=== PATIENT | female | born 1960 | race Caucasian/White ===

== ENCOUNTER → 2025-01-13 | Outpatient (CLI) | payer MEDICARE, SELFPAY ==
--- NOTE | 2025-01-13 10:22 | RAD_ITS ---
PROCEDURE: ORBITS FOR FOREIGN BODY 01/13/2025 REASON FOR EXAM: HX: REMOVAL OF METAL FROM EYES TECHNIQUE: 2 view(s) of the facial bones COMPARISON: None FINDINGS: Bones: Unremarkable Sinuses: Unremarkable Additional findings: No radiopaque foreign body seen. RAD/Orbits for Foreign Body IMPRESSION: No radiopaque foreign body seen. Clear for [place] Reading Location: [facility]
--- NOTE | 2025-01-13 10:45 | MRI_ITS ---
CLINICAL HISTORY: proptosis COMPARISON: none TECHNIQUE: Multiplanar sequence imaging of the orbits and brain with and without contrast was performed. FINDINGS: Bilateral symmetrical fusiform thickening of the extra-ocular muscles, most evident along the inferior and medial recti. Enlarged lacrimal glands with no obvious focal enhancing masses. Bilateral proptosis noted. Both optic nerves are of normal width and signal intensity. No mass is seen in their relation.No abnormal optic nerve enhancement seen. Optic chiasma is normal. Periorbital soft tissues and retrobulbar fat appear unremarkable. No mass or collection is evident. Both eyeballs are normal in size, outline and position. No intra-ocular mass is observed. No acute or hyperacute infarcts. No intracerebral or extra-axial hematomas. No obvious enhancing masses. Bilateral cerebral periventricular and subcortical as well as basal ganglia, thalamic and pontine foci and patches of high T2/FLAIR WI signal. Normal MRI signal of the cerebellar hemispheres and rest of the brain stem. Dilated ventricular system, cortical sulci and extra-axial CSF spaces. No shift of midline structures. Mild right mastoiditis. Normal MRI appearance of the cerebellopontine angles with no definite masses. Scanned paranasal sinuses show minimal maxillary and ethmoidal sinusitis. MRI/Orbit Face Neck W/WO Contrast IMPRESSION: Bilateral symmetrical fusiform thickening of the extra-ocular muscles with enla rged lacrimal glands and bilateral proptosis. 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 Advise clinical a nd laboratory correlation. No acute infarcts. No intracerebral or extra-axial hematomas. No enhancing mass es. Bilateral cerebral and pontine microvascular ischemic changes. Age appropriate brain involutional changes. [facility]
== END | disposition home or self-care (01) ==
LOC: MRI 10:15 → OPMRI 10:19
PROVIDERS: Referring Provider Ophthalmology; Visit Provider Ophthalmology
DX: H05.20 Unspecified exophthalmos (principal)
CPT/HCPCS: 70030; 70543; A9575

== ENCOUNTER → 2025-02-11 | Outpatient (CLI) | payer MEDICARE, SELFPAY ==
[2025-02-11 15:36] LABS: Absolute Lymphocyte Count 3.24 X10^3/uL (0.83-4.51); Absolute Neutrophil Count 4.5 X10^3/uL (2.0-7.7); Basophil# 0.04 X10^3/uL; Basophil% 0.5 % (0-1); Eosinophil# 0.05 X10^3/uL; Eosinophils% 0.6 % (0-5); Hematocrit 44.6 % (37-47); Hemoglobin 14.5 g/dL (12.0-15.0); Lymphocyte # 3.24 X10^3/ul (0.83-4.51); Lymphocyte % 38.3 % (19-41); Mean Corp Hgb Conc 32.5 g/dL (32-36); Mean Corpuscular Volume 95.5 fL (81-99); Monocyte# 0.56 X10^3/uL; Monocyte% 6.6 % (0-10); NRBC Flagged by Analyzer 0 % (0-5); Neutrophil # 4.53 X10^3/uL (2.7-7.7); Neutrophil % 53.6 % (47-70); Platelet Count 211 K/mm3 (150-450); RBC Distribution Width CV 13.2 % (11.6-14.6); RBC Distribution Width SD 46.5 fl (35.1-43.9); Red Blood Count 4.67 M/mm3 (4.2-5.4); White Blood Count 8.5 K/mm3 (4.4-11.0)
[2025-02-11 16:16] LABS: ALB/GLOB Ratio 1.3 RATIO (0.9-2.4); AST(SGOT) 29 U/L (<=31); Alanine Aminotransfer ALT/SGPT 21 U/L (<=34); Albumin, Serum 4.2 g/dL (3.4-4.8); Alkaline Phosphatase 143 U/L (35-104); Anion Gap 12 (5-15); BUN 17 mg/dL (4-19); BUN/Creat Ratio 21.2 RATIO (10-20); Calcium,Total 9.4 mg/dL (7.6-11.0); Carbon Dioxide 24.3 mmol/L (21.0-32.0); Chloride 108 mmol/L (98-108); Cholesterol 193 mg/dL (<=200); Creatinine, Serum 0.79 mg/dL (0.70-1.20); EST Glomerular Filtration Rate 83 (>60); Globulin 3.2 g/dL (2.2-4.2); Glucose 101 mg/dL (70-99); High Density Lipoprotein 29 mg/dL; Low Density Lipoprotein Calc. 117 mg/dL; Potassium 4.6 mmol/L (3.3-5.1); Protein, Total 7.4 g/dL (5.9-8.4); Sodium Level 144 mmol/L (133-145); Total Bilirubin 0.33 mg/dL (0.00-1.30); Triglycerides 234 mg/dL; Very Low Density Lipoprotein 47 mg/dL (5-40); Vitamin D,25 Hydroxy 37.2 ng/mL (30-100); cholesterol:hdl ratio screen 6.63
[2025-02-15 18:08] LABS: Thyroid Stim Immunoglob <0.10 IU/L (0.00-0.55)
== END | disposition home or self-care (01) ==
LOC: MFPLAB 11:55
PROVIDERS: PCP Family Medicine; Referring Provider Family Medicine; Visit Provider Family Medicine
DX: I10 Essential (primary) hypertension (principal); E78.5 Hyperlipidemia, unspecified; E03.9 Hypothyroidism, unspecified; M54.32 Sciatica, left side
CPT/HCPCS: 36415; 80053; 80061; 82306; 84439; 84443; 84445; 85025

== ENCOUNTER 2025-08-10 08:12 | Day surgery (SDC) | payer MEDICARE, SELFPAY ==
[2025-08-10] VITALS (8 sets, daily range): BP systolic 99–130; BP diastolic 60–71; PULSE 61–71; RESP 16–20; TEMP 36.1–36.2; O2SAT 93–98; BMI 39.5
[2025-08-10] MEDS: Lactated Ringers 1,000 ML 15 ML IV (08:53)
--- NOTE | 2025-08-10 08:54 | PCM.HP.STD ---
HPI - General General Date of Admission: 08/10/25 Date of Service: 08/10/25 Chief Complaint: Personal history of polyps HPI Narrative EARNEST JADE, is a 65 F who presents [for surveillance colonoscopy. She had a colonoscopy approximately 35 years ago and had multiple polyps removed during that time. She has not had any abdominal pain, cramping, chest pain or shortness of breath. All 16 review systems are negative except as per positive mentioned HPI.] [facility] Medical History Cancer Wears dentures Depression Thyroid disease Arthritis Restless legs Back pain Gastric reflux Former smoker Shortness of breath on exertion History of edema History of pain when walking Leg cramps History of stress test Home Medications ?Medication ?Instructions ?Recorded ?Last Taken ?Type amitriptyline 50 mg tablet 50 mg PO QHS 08/09/25 08/08/25 History amlodipine 10 mg tablet 10 mg PO DAILY 08/09/25 08/10/25 History atorvastatin 20 mg tablet 20 mg PO DAILY 08/09/25 08/08/25 History duloxetine 60 mg capsule,delayed 60 mg PO QHS 08/09/25 08/08/25 History release levothyroxine 88 mcg tablet 88 mcg PO DAILY 08/09/25 08/08/25 History losartan 100 mg tablet 100 mg PO QHS 08/09/25 08/08/25 History metoprolol succinate 100 mg 100 mg PO QHS 08/09/25 08/08/25 History tablet,extended release 24 hr omeprazole 40 mg capsule,delayed 40 mg PO DAILY 08/09/25 08/08/25 History release spironolactone 50 mg tablet 50 mg PO QHS 08/09/25 08/08/25 History Allergy/AdvReac Type Severity Reaction Status Date / Time No Known Allergies Allergy Verified 08/10/25 08:39 Surgical History History of carpal tunnel surgery H/O tubal ligation H/O: knee surgery H/O left shoulder surgery Status post left breast lumpectomy H/O elbow surgery Social History Smoking Status: Current every day smoker tobacco type: cigarettes ROS Constitutional Constitutional: Denies fatigue, fever(s), poor appetite, weight gain or weight loss Gastrointestinal Gastrointestinal: Denies belching, bloating, change in bowel habits, change in stool character, chewing difficulty, coffee ground emesis, constipation, cramping, diarrhea, dyspepsia, dysphagia, early satiety, excessive flatus, fecal incontinence, heartburn, hematemesis, hematochezia, hemorrhoids, loose stools, melena, nausea, odynophagia, rectal bleeding, tenesmus, vomiting or weight changes Vital Signs Vital Signs Vital Signs: 08/10/25 08:41 08/10/25 08:41 08/10/25 08:46 Temperature 97.0 F L Temperature Source Temporal Pulse Rate 64 Respiratory Rate 20 H Respiratory Pattern Normal Blood Pressure 123/60 H Blood Pressure Mean 81 Blood Pressure Source Monitor Blood Pressure Position Semi-Fowlers Blood Pressure Location Left Arm Baseline BP 123/60 Pulse Ox 96 Oxygen Delivery Method Room Air Weight Weight: 216 lb 0.848 oz Body Mass Index (BMI) 39.5 Physical Exam Const alert, oriented x3, no apparent distress and healthy appearing General Appearance: cooperative GI normal to inspection, nondistended, normoactive bowel sounds, soft to palpation, non-tender and non-distended Percussion: normal to percussion Rectal Exam: deferred Assessment & Plan Assessment/Plan (1) Personal history of colonic polyps: PLAN: She will undergo surveillance colonoscopy. She was explained alternatives, risk and benefits cannot withstanding bleeding, fracture, sepsis, perforation, need for return and . She will have an ASA of 3.
--- NOTE | 2025-08-10 09:25 | PCM.PRE.AN2 ---
ASA Classification* ASA Classification ASA Classification: 2 Assessment & Plan Anesthesia* Anesthesia Assessment Anesthesia Assessment: Discussed sedation and/or anesthesia options, risks, benefits, and alternatives with patient/parents/legal guardian/POA. Questions invited. The patient/parents/legal guardian/POA seems to understand and agrees to proceed with anesthesia plan. Reviewed the physical assessment, medical history, allergy history and patient home medications list prior to surgery/procedure/anesthetic and documented any changes. Performed airway and anesthesia risk assessments. Anesthesia Type Anesthesia Type: MAC History Source History Obtained from:: Patient and Chart Anesthesia Focused Assessment* Temperature: 97.0 F Pulse Rate: 64 Blood Pressure: 123/60 Respiratory Rate: 20 Pulse Ox: 96 Oxygen Delivery Method: Room Air Airway Assessment Mouth opens: >3 cm Mallampati Score: III Teeth Condition: Dentures (Patient has full upper and lower dentures.) Neck Range of motion (ROM): Limited ROM (Slight Decrease) Labs Anesthesia Preop lab: CBC WBC, (4.4-11.0) 8.5 K/mm3 02/11/25, 11:55 RBC, (4.2-5.4) 4.67 M/mm3 02/11/25, 11:55 Hgb, (12.0-15.0) 14.5 g/dL 02/11/25, :55 Hct, (37-47) 44.6 % 02/11/25, 11:55 Plt Count, (150-450) 211 K/mm3 02/11/25, 11:55 CHEMISTRY Potassium, (3.3-5.1) 4.6 mmol/L 02/11/25, 11:55 Sodium, (133-145) 144 mmol/L 02/11/25, 11:55 BUN, (4-19) 17 mg/dL 02/11/25, 11:55 Creatinine, (0.70-1.20) 0.79 mg/dL 02/11/25, 11:55 Glucose, (70-99) 101 mg/dL H 02/11/25, 11:55 TSH, (0.300-4.200) 3.940 uIU/mL 02/11/25, 11:55 COAG Pre-Assessment Diagnosis/Proposed Procedure Planned Operative Procedure(s): COLONOSCOPY Anesthesia History 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 When Was Last Pacemaker Check QUESTION #4 FULL TEXT: You/Your Family Experience fever (hyperthermia) with Anesthesia Last Oral Intake Last Oral intake: Last Oral Intake NPO since 00:00 08/10/25 08:46 Meds taken in AM with sips of Yes 08/10/25 08:46 water? 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 Female Yes 08/09/25 10:31 HX of Motion Sickness No 08/09/25 10:31 HX of N/V After Surgery No 08/09/25 10:31 Non-Smoker Yes 08/09/25 10:31 Duration of Surgery greater No 08/09/25 10:31 than 60 minutes Number of Risk Factors 2 08/09/25 10:31 PONV Score Moderate Risk 08/09/25 10:31 Height & Weight Height & Weight: Anesthesia: Height & Weight Height 5 ft 2 in 08/10/25 08:46 Weight: 98 kg 08/10/25 08:46 Body Mass Index (BMI) 39.5 08/10/25 08:46 Respiratory Assessment Respiratory Assessment - trampoline team coach: Respiratory Tract Infection Hx - trampoline team coach Hx Respiratory Tract Infection No 08/09/25 10:31 STOP Sleep Apnea STOP Sleep Apnea - trampoline team coach: STOP Sleep Apnea - trampoline team coach Hx Hypertension Yes: CONTROLLED WITH MEDS 08/09/25 10:31 Hx Sleep Apnea Yes 08/09/25 10:31 CPAP Yes 08/09/25 10:31 BIPAP No 08/09/25 10:31 Do you snore loudly (louder than talking or can be heard Do you often feel tired/ fatigued/ sleepy during daytime? Has anyone observed you stop breathing during sleep? STOP Results Positive 08/09/25 10:31 QUESTION #5 FULL TEXT : Do you snore loudly (louder than talking or can be heard through closed doors)? 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 Specify any problems Hx of Preganancy in last 3 No 08/09/25 10:31 Months Nurse Filling Out Transfusion [email or web address] 08/09/25 10:31 & Questions: Date: 08/09/25 08/09/25 10:31 Time: 10:35 08/09/25 10:31 Patient unable to answer at this time (ie. confused, unrespo /Reproduction History /Reproductive History - trampoline team coach: /Reproductive Hx- trampoline team coach Hx Now Gestational Age (in weeks): EDC: Hx Hx Para Hx Section SAB Does the father of the baby or his family experience fever w Father of the baby Malignant Hypertension history comment Active Medications Active Medications: Current Medications Generic Name Dose Route Start Last Admin Trade Name Freq PRN Reason Stop Dose Admin Lactated Ringer's 1,000 mls @ 15 mls/hr 08/10/25 08:30 08/10/25 08:53 IV 15 mls/hr .Q48H CARMENCITA Administration PFSH Medical History Cancer Wears dentures Depression Thyroid disease Arthritis Restless legs Back pain Gastric reflux Former smoker Shortness of breath on exertion History of edema History of pain when walking Leg cramps History of stress test Home Medications ?Medication ?Instructions ?Recorded ?Last Taken ?Type amitriptyline 50 mg tablet 50 mg PO QHS 08/09/25 08/08/25 History amlodipine 10 mg tablet 10 mg PO DAILY 08/09/25 08/10/25 History atorvastatin 20 mg tablet 20 mg PO DAILY 08/09/25 08/08/25 History duloxetine 60 mg capsule,delayed 60 mg PO QHS 08/09/25 08/08/25 History release levothyroxine 88 mcg tablet 88 mcg PO DAILY 08/09/25 08/08/25 History losartan 100 mg tablet 100 mg PO QHS 08/09/25 08/08/25 History metoprolol succinate 100 mg 100 mg PO QHS 08/09/25 08/08/25 History tablet,extended release 24 hr omeprazole 40 mg capsule,delayed 40 mg PO DAILY 08/09/25 08/08/25 History release spironolactone 50 mg tablet 50 mg PO QHS 08/09/25 08/08/25 History Allergy/AdvReac Type Severity Reaction Status Date / Time No Known Allergies Allergy Verified 08/10/25 08:39 Surgical History History of carpal tunnel surgery H/O tubal ligation H/O: knee surgery H/O left shoulder surgery Status post left breast lumpectomy H/O elbow surgery Social History Smoking Status: Current every day smoker tobacco type: cigarettes Review of Systems (Anesthesia) ROS Narrative System reviewed and no additional complaints, except as documented.
--- NOTE | 2025-08-10 10:42 | OP.COLON_ITS ---
Patient Name: Ángela Moon Procedure Date: 08/10/2025 10:13 AM Date of : 1960 Age: 65 Procedure: Colonoscopy Indications: High risk colon cancer surveillance: Personal history of colonic polyps Providers: Omid Brush DO Referring MD: Gama Marx Md Medicines: Monitored Anesthesia Care Patient Profile: This is a 65 year old female. Refer to note in patient chart for documentation of history and physical. Last Colonoscopy: 5 years ago. Complications: No immediate complications. Procedure: Pre-Anesthesia Assessment: - Prior to the procedure, a History and Physical was performed, and patient medications and allergies were reviewed. The patient is competent. The risks and benefits of the procedure and the sedation options and risks were discussed with the patient. All questions were answered and informed consent was obtained. Patient identification and proposed procedure were verified by the physician in the pre-procedure area. Mental Status Examination: alert and oriented. Airway Examination: normal oropharyngeal airway and neck mobility. Respiratory Examination: clear to auscultation. CV Examination: normal. Prophylactic Antibiotics: The patient does not require prophylactic antibiotics. Prior Anticoagulants: The patient has taken no anticoagulant or antiplatelet agents except for NSAID medication. ASA Grade Assessment: II - A patient with mild systemic disease. After reviewing the risks and benefits, the patient was deemed in satisfactory condition to undergo the procedure. The anesthesia plan was to use monitored anesthesia care (MAC). Immediately prior to administration of medications, the patient was re-assessed for adequacy to receive sedatives. The heart rate, respiratory rate, oxygen saturations, blood pressure, adequacy of pulmonary ventilation, and response to care were monitored throughout the procedure. The physical status of the patient was re-assessed after the procedure. After I obtained informed consent, the scope was passed under direct vision. Throughout the procedure, the patient's blood pressure, pulse, and oxygen saturations were monitored continuously. The pediatric colonoscope was introduced through the anus and advanced to the cecum, identified by appendiceal orifice and ileocecal valve. The colonoscopy was performed without difficulty. The patient tolerated the procedure well. The quality of the bowel preparation was poor. The ileocecal valve, appendiceal orifice, and rectum were photographed. Scope In: 10:27:45 AM Scope Withdrawal Time 0 hours 4 minutes 59 seconds Scope Out: 10:38:12 AM Total Procedure Duration Time 0 hours 10 minutes 27 seconds Findings: The perianal and digital rectal examinations were normal. Extensive amounts of stool was found in the entire colon, precluding visualization. Impression: - Preparation of the colon was poor. - Stool in the entire examined colon. - No specimens collected. Recommendation: - Discharge patient to home. - Resume previous diet. - Continue present medications. - Repeat colonoscopy because the bowel preparation was poor. Procedure Code(s): --- Professional --- 39844, Colonoscopy, flexible; diagnostic, including collection of specimen(s) by brushing or washing, when performed (separate procedure) CPT copyright 2021 [employer]. All rights reserved. The codes documented in this report are preliminary and upon inlayer silver review may be revised to meet current compliance requirements. Omid Brush DO 08/10/2025 10:42:21 AM This report has been signed electronically. Number of Addenda: 0 Note Initiated On: 08/10/2025 10:13 AM
--- NOTE | 2025-08-10 10:43 | OP.PROVAT_ITS ---
08/10/2025 Gama Marx Md Re : Colonoscopy procedure for Ángela Moon Dear Araseli This procedure was performed on Sunday, August 10, 2025. My impressions and recommendations are as follows: Impressions : - Preparation of the colon was poor. - Stool in the entire examined colon. - No specimens collected. Recommendations : - Discharge patient to home. - Resume previous diet. - Continue present medications. - Repeat colonoscopy because the bowel preparation was poor. My findings are described in the full procedure note, which is enclosed. If I can be of further assistance, please feel free to contact me at . Sincerely, Omid Brush, 08/10/2025 10:42:21 AM This report has been signed electronically.
--- NOTE | 2025-08-10 10:49 | PCM.POST.ANE ---
Anesthesia: Postop Eval I Current Vital Signs Temperature: 97.1 F Pulse Rate: 71 Blood Pressure: 99/61 Respiratory Rate: 16 Pulse Ox: 93 Oxygen Delivery Method: Room Air Assessment Airway patent: Yes Spontaneous unlabored respirations: Yes Mental status: Awake nausea: No Vomiting: No Anesthesia Complication: No Fluid Hydration Crystalloid volume administer (ml): 500 Total IV fluid infused: 500 Progress Note Anesthesia document: Postop Eval 1 completed: Yes
--- NOTE | 2025-08-10 21:53 | PCM.POSTANE2 ---
Anesthesia Postop Eval I Sum Postop Eval Completion status Anesthesia document: Postop Eval 1 completed: Yes Anesthesia Postop Eval I Summary Anesthesia Postop Eval I Summary: Anesthesia Postop Eval I: Assessment Summary Airway patent Yes 08/10/25 10:50 [email or web address] Spontaneous unlabored Yes 08/10/25 10:50 [email or web address] respirations Mental status Awake 08/10/25 10:50 [email or web address] nausea No 08/10/25 10:50 [email or web address] Vomiting No 08/10/25 10:50 [email or web address] Anesthesia Postop Eval I: Fluid Summary Crystalloid volume administer 500 08/10/25 10:50 [email or web address] (ml) Colloids volume administered ( ml) Blood Product volume administered (ml) Total IV fluid infused 500 08/10/25 10:50 [email or web address] Anesthesia Postop Eval I: Summary Notes Anesthesia Complication No 08/10/25 10:50 [email or web address] Anesthesia Complication Comment: Post-operative progress note Anesthesia: Postop Eval II Evaluation Mental status: Awake and Calm Pain Level: 0 nausea: No Vomiting: No Complications Anesthesia Complication: No
== END 2025-08-10 11:25 | disposition home or self-care (01) ==
LOC: EN 08:14 → AC 08:14
PROVIDERS: PCP Family Medicine; Referring Provider Family Medicine; Visit Provider Internal Medicine Gastroenterology
PROC: 0DJD8ZZ Inspection of Lower Intestinal Tract, Via Natural or Artificial Opening Endoscopic (ICD-10-PCS; CPT 45378; principal; 2025-08-10 09:40)
DX: Z12.11 Encounter for screening for malignant neoplasm of colon (principal); Z86.0100 Personal history of colon polyps, unspecified; F32.A Depression, unspecified; Z79.899 Other long term (current) drug therapy; K21.9 Gastro-esophageal reflux disease without esophagitis; Z98.51 Tubal ligation status; F17.210 Nicotine dependence, cigarettes, uncomplicated
CPT/HCPCS: 45378; J2405